=== PATIENT | female | born 1945 ===

== ENCOUNTER → 2019-03-08 | Outpatient (REF) | payer MEDICARE | LOC: M LAB LCGH 10:04 | PROVIDERS: ATTEND Physician Assistant | DX: L72.0 Epidermal cyst (principal) ==

== ENCOUNTER → 2019-03-12 | Outpatient (REF) | payer MEDICARE | LOC: M LAB LCGH 13:50 | PROVIDERS: ATTEND Physician Assistant | DX: L72.9 Follicular cyst of the skin and subcutaneous tissue, unspecified (principal) ==